=== PATIENT | female | born 1985 | race Caucasian/White ===

== ENCOUNTER 2017-07-22 06:06 | Day surgery (SDC) | payer OTHER ==
[~2017-07-22 06:06] MED LIST: ANTICONCEPTIC PO; PERCOCET 5/3251 TAB PO; RECTICARE30 GM TP
[2017-07-22] MEDS ORDERED: RECTICARE30 GM TP (08:46)
[2017-07-22] MEDS ORDERED: PERCOCET 5-3251 EACH PO (08:46)
== END 2017-07-22 12:55 | disposition home or self-care (01) ==
LOC: CIR.AMB 06:06
DX: K61.0 Anal abscess (principal)

== ENCOUNTER 2017-10-07 09:35 | Day surgery (SDC) | payer OTHER ==
[~2017-10-07 09:35] MED LIST changes: +PERCOCET 5-3251 EACH PO
[2017-10-07] MEDS ORDERED: RECTICARE30 GM TOP (13:55)
[2017-10-07] MEDS ORDERED: PERCOCET 5-3251 EACH PO (13:55)
== END 2017-10-07 15:40 | disposition home or self-care (01) ==
LOC: CIR.AMB 09:35
DX: K60.5 Anorectal fistula (principal)